=== PATIENT | female | born 1970 | race Caucasian/White ===

== ENCOUNTER 2016-05-20 20:53 | Emergency (ER) | payer OTHER ==
--- NOTE | ~2016-05-20 | CT71 ---
[facility] A Service of [facility] RADIOLOGY TEXT RESULTS PATIENT: LEAH BUENO LOCATION: [facility] : [birth year] UNIT #: [id number] AGE: [address]: Meme Healy MD SEX: F ORDER DR: [id number] [address] [place], [place] [address] [id number] MR#: [id number] Acc #: [id number] NAME: LEAH BUENO : 1970 SEX: F STUDY DATE/TIME: 05/20/2016 22:48 UNIT: [facility] ROOM: STUDY DESCRIPTION: CT Head Wo Contrast Attending Physician: Meme Healy M.D. Ordering Physician: Meme Healy M.D. Primary Care Physician: Generic Doctor Not In System MEDICAL IMAGING REPORT This report is preliminary unless electronic signature is present EXAM CT head without IV contrast COMPARISON None INDICATIONS A 46-year-old female with seizure tonight. TECHNIQUE This CT exam was performed with one or more of the following radiation dose reduction techniques: automatic exposure control, adjustment of mA and/or kV according to patient size, and iterative reconstruction. FINDINGS There is moderate mucosal thickening in the posterior right ethmoid air cells. Otherwise mastoid air cells, middle ears and visualized paranasal sinuses are well-aerated. No acute fractures or suspicious osseous lesions. Normal cerebral volume. No abnormal or extraaxial fluid collection or mass effect. No acute intracranial hemorrhage. No evidence of acute ischemia. IMPRESSION No acute intracranial abnormality. Mild mucosal thickening of the right-sided ethmoid air cells as described of uncertain acuity. Dictated by... Dale Piedra M.D. [facility] A Service of [facility] RADIOLOGY TEXT RESULTS PATIENT: LEAH BUENO LOCATION: [facility] : [birth year] UNIT #: [id number] AGE: [address]: Meme Healy MD SEX: F ORDER DR: THIS IS AN ELECTRONICALLY VERIFIED REPORT Dale Piedra M.D. at 05/24/2016 7:55 AM Ovidio TD: 05/21/2016 02:51 JOB #: [id number] MEDICAL IMAGING REPORT COPY
[~2016-05-20 20:53] MED LIST: BENZONATATE PO; CLEOCIN PO; FLEXERIL10 M1 PO; GABAPENTIN300 MG PO; METHADONE; VOLTAREN75 MG PO; ZITHROMAX1 G/PKT PO
[2016-05-20 21:22] LABS: BASOPHIL# 0.1 X10e3 (0-0.3); BASOPHIL% 0.6 % (0-2.5); EOSINOPHIL# 0.1 X10e3 (0-0.7); EOSINOPHIL% 0.7 % (0.0-7.0); HEMATOCRIT 37.4 % (35.0-45.0); HEMOGLOBIN 12.3 gm/dL (12.0-16.0); LYMPHOCYTE# 1.5 X10e3 (1.0-3.5); LYMPHOCYTE% 12.4 % (17.0-45.0); MEAN CELL VOLUME 94.4 FL (83-96); MEAN CORPUSCULAR HEMOGLOBIN 30.9 PG (28-34); MEAN CORPUSCULAR HGB CONC 32.8 g/dL (30-36); MEAN PLATELET VOLUME 9.7 FL (6.5-11.5); MONOCYTE# 0.8 X10e3 (0-1.0); MONOCYTE% 6.4 % (3.0-12.0); NEUTROPHIL# 9.5 X10e3 (1.5-7.1); NEUTROPHIL% 79.9 % (40-75); PLATELET COUNT 223 X10e3 (140-420); RED BLOOD COUNT 3.96 X10e (3.90-5.30); WHITE BLOOD COUNT 11.9 X10e3 (4.0-10.5)
[2016-05-20 21:33] LABS: DIFF IND NO
[2016-05-20 21:41] LABS: URINE SOURCE CLEAN CATCH
[2016-05-20 21:45] LABS: URINE APPEARANCE TURBID; URINE BILIRUBIN NEG (NEG); URINE BLOOD NEG (NEG); URINE COLOR YELLOW; URINE GLUCOSE NEG (NEG); URINE KETONE NEG (NEG); URINE LEUKOCYTE ESTERASE 1+ (NEG); URINE NITRATE NEG (NEG); URINE PROTEIN NEG (NEG); URINE SPECIFIC GRAVITY 1.019 (1.003-1.035); URINE UROBILINOGEN 0.2 MG/DL (NEG)
[2016-05-20 21:47] LABS: CULTURE INDICATED? YES; URINE BACTERIA AUWI 4+ (NEGATIVE); URINE SQUAMOUS EPITHELIAL CELL MANY /[HPF]; UWBCS1 AUWI 25-50 (0-5)
[2016-05-20 21:53] LABS: ALBUMIN SERUM 3.6 g/dL (3.5-5.0); ALKALINE PHOSPHATASE 63 U/L (32-92); ALT (SGPT) 25 U/L (10-40); AST (SGOT) 24 U/L (10-42); BILIRUBIN,TOTAL 0.3 mg/dL (0.2-2.0); BLOOD UREA NITROGEN 18 mg/dL (9-23); CALCIUM SERUM 8.6 mg/dL (8.4-10.2); CARBON DIOXIDE 30 mmol/L (22-31); CHLORIDE 103 mmol/L (100-111); CREATININE SERUM 0.6 mg/dL (0.6-1.4); GLOM FILT RATE Estimated ABOVE60 mL/min (>60); GLUCOSE FASTING 128 mg/dL (70-110); POTASSIUM 4.1 mmol/L (3.5-5.1); PROTEIN TOTAL SERUM 6.9 g/dL (6.0-8.3); SODIUM 137 mmol/L (135-145)
[2016-05-20 21:57] LABS: ALCOHOL BLOOD <5 mg/dL (0); BILIRUBIN,INDIRECT 0.2 mg/dL (0.0-0.9)
[2016-05-20 21:58] LABS: BILIRUBIN, DIRECT 0.1 mg/dL (0.0-0.2)
[2016-05-20 22:00] LABS: URBCS1 AUWI 0-2 /[HPF] (0-2)
[2016-05-20 22:24] LABS: AMPHETAMINE NEG (NEG); BARBITURATES NEG (NEG); BENZODIAZEPINES POS (NEG); COCAINE NEG (NEG); MARIJUANA NEG (NEG); OPIATES NEG (NEG); TRICYCLIC ANTIDEPRESSANTS NEG (NEG); U METHADONE NEG (NEG)
== END 2016-05-21 00:10 | disposition home or self-care (01) ==
LOC: CED 20:53
PROVIDERS: Student in an Organized Health Care Education/Training Program
DX: F19.10 Other psychoactive substance abuse, uncomplicated (principal); F17.200 Nicotine dependence, unspecified, uncomplicated
CPT/HCPCS: 36415; 70450; 80048; 80076; 80307; 81003; 84703; 85025; 87086; 96360; 99284; G0480

== ENCOUNTER 2016-07-14 13:46 | Inpatient (IN) | payer OTHER ==
--- NOTE | ~2016-07-14 | DS ---
Unit #: [id number] #: [id number] [facility] [id number] [facility] [address] [place] [address] [id number] I MR#: [id number] NAME: LEAH BUENO ROOM: 30 Age: 46 Sex: F Admission Date: 07/14/2016 : 1970 Discharge Date: 07/21/2016 Attending Physician: Sukhi Collins M.D. Primary Care Physician: Generic Doctor Not In System DISCHARGE SUMMARY IDENTIFICATION DATA Ms. Bueno is a 46-year-old single white female with a long history of chronic mental illness who was brought to the hospital by Crisis Intervention Team with [facility] Department. DISCHARGE DIAGNOSES PSYCHIATRIC: Chronic, paranoid schizophrenia. MEDICAL: Hypertension. STRESSORS: Moderate psychosocial stressors. HISTORY OF PRESENT ILLNESS Same as in initial psychiatric evaluation. PAST PSYCHIATRIC HISTORY Same as in initial psychiatric evaluation. PAST MEDICAL HISTORY Same as in initial psychiatric evaluation. HOSPITAL COURSE The patient was admitted to the adult psychiatric unit at [facility] and was oriented to the hospital environment. Routine p.r.n. medications were initiated, and she was started back on her home medications. However, she was seen to be acutely psychotic upon presentation, and as such medications were adjusted. She was also seen to be a candidate for long-acting injectable antipsychotic, and after ruling out hypersensitivity to the molecule of Risperdal, Invega Sustenna was initiated, and she was able to get the first loading dose, 1 in the hospital and then she decided that she wanted to be discharged home and was willing to continue treatment on outpatient basis. As such, it was decided that she will be discharged, and we will continue treatment on outpatient basis. DISCHARGE MEDICATIONS 1. Remeron 15 mg at bedtime for depression. 2. Invega Sustenna 156 mg intramuscular every 30 days for schizophrenia. DISCHARGE CONDITION Stable. PROGNOSIS Fair. Unit #: [id number] #: [id number] Patient: LEAH BUENO Dictated by... Sukhi Collins M.D. IAA/bzg TD: 07/21/2016 13:49 JOB #: [id number] DISCHARGE SUMMARY Page 1 of 1 X Sukhi Collins MD DISCHARGE SUMMARY
--- NOTE | ~2016-07-14 | PN ---
Unit #: [id number] #: [id number] Patient: LEAH BUENO [id number] [facility] [address] [place] [address] [id number] I MR#: [id number] NAME: LEAH BUENO ROOM: P130 Age: 46 Sex: F Admission Date: 07/14/2016 : 1970 Attending Physician: Sukhi Collins M.D. Admitting Physician: Sukhi Collins M.D. Primary Care Physician: Generic Doctor Not In System [facility] PROGRESS NOTES DATE 07/15/2016 DISCUSSION Ms. Bueno is a 46-year-old white female who was seen today and chart was reviewed and case was discussed with the staff. She remains anxious, withdrawn and rather seclusive to herself and reports persistent auditory hallucinations and depression and anxiety. Meanwhile, she has not shown any agitation or aggression. MENTAL STATUS EXAMINATION Middle-aged white female who was casually dressed with fair personal hygiene, appears to be in no acute distress or discomfort. She was awake and alert with intact orientation. Her mood is anxious with congruent affect. She denies any suicidal or homicidal ideations. Her insight and judgement remains significantly impaired. TREATMENT PLAN 1. We will continue her on her current medications and treatment protocol. We will monitor her response to the medications and make further adjustments as needed. 2. We will continue to follow up. Dictated by... Xochitl Chowdhury/savannah TD: 07/17/2016 00:44 JOB #: [id number] Unit #: [id number] #: [id number] Patient: LEAH BUENO PROGRESS NOTES Page 1 of 1 X Sukhi Collins MD X PROGRESS NOTE
--- NOTE | ~2016-07-14 | HP ---
Unit #: [id number] #: [id number] Patient: DIONE BUENO [id number] [place] [address] [id number] I MR#: [id number] NAME: DIONE BUENO ROOM: 30 Age: 46 Sex: F Admission Date: 07/14/2016 : 1970 Attending Physician: Sukhi Collins M.D. Admitting Physician: Sukhi Collins M.D. Primary Care Physician: Generic Doctor Not In System HISTORY AND PHYSICAL HISTORY OF PRESENT ILLNESS Dione is a 46 year old admitted to [address] [place] [address] with psychotic behavior. She has had other admissions to this facility. PAST MEDICAL HISTORY 1. Degenerative disk disease. 2. Overactive bladder. 3. High blood pressure. PAST SURGICAL HISTORY 1. Benign breast mass resected. 2. History of tubal . ALLERGIES No known drug allergies. SOCIAL HISTORY Smokes one-half packs per day. Denies alcohol. Admits to a history of illicit substance abuse. FAMILY HISTORY Medically noncontributory. REVIEW OF SYSTEMS She does not answer all questions appropriately. There are no reports of nausea, vomiting, or diarrhea. She has had no cough or increased temperature. CURRENT MEDICATIONS 1. Flomax 0.4 mg q.h.s. 2. Desyrel 100 mg q.h.s. 3. Risperdal 2 mg t.i.d. 4. Neurontin 300 mg t.i.d. 5. Milk of Magnesia p.r.n. 6. Maalox p.r.n. 7. Tylenol p.r.n. 8. Norvasc 5 mg q. day. 9. Nicotine patch 21 mg q. day. PHYSICAL EXAMINATION GENERAL: Alert, well nourished. No apparent distress. VITAL SIGNS: Blood pressure 120/62, heart rate 80, respirations 16, and temperature 98.6. Unit #: [id number] #: [id number] Patient: DIONE BUENO WEIGHT: 130. HEIGHT: 5 feet 6 inches. SKIN: Warm and dry without rash or lesion. HEENT: Normocephalic. TMs not viewed. Oral and nasal passages clear. Conjunctivae clear. PERRLA. EOMs intact. NECK: Supple without lymphadenopathy or thyromegaly. HEART: Regular rate and rhythm without murmur. LUNGS: Clear. ABDOMEN: Soft, nontender. : Not done. EXTREMITIES: No evidence of cyanosis, clubbing or edema. Moves all without focal deficit. NEUROLOGICAL: Grossly within normal limits. Cranial Nerves: II: Visual conley are intact. III, IV AND : Extraocular movements are intact. Pupils are equal, round and reactive to light. V: Facial sensation is grossly normal. VII: Facial movements and expression are normal. VIII: Auditory acuity grossly intact. IX, X: Uvula is midline. Phonation is normal. XI: Patient shrugs shoulders and turns head normally. XII: Tongue protrudes in the midline. Sensory and Motor Function: Sensory and motor sensation is grossly normal. Motor: moves all extremities well. Coordination: Gait is normal. Deep Tendon Reflexes: Intact. IMPRESSION Psychiatric admission. RECOMMENDATIONS PSYCHIATRIC: Per psychiatrist. MEDICAL: I see no contraindication to participate in this facility's activities. MEDICAL PROGNOSIS Good. MEDICAL CONDITION Stable. Dictated by... Anita Chambers PTierraA.-C. for Xochitl Delarosa/tiara TD: 07/15/2016 07:00 JOB #: [id number] Unit #: [id number] #: [id number] Patient: DIONE BUENO HISTORY AND PHYSICAL Page 1 of 1 X Anita Chambers HISTORY AND PHYSICAL
--- NOTE | ~2016-07-14 | PA ---
Unit #: [id number] #: [id number] Patient: LEAH BUENO [id number] [facility] [address] [place] [address] [id number] I MR#: [id number] NAME: LEAH BUENO ROOM: P130 Age: 46 Sex: F Admission Date: 07/14/2016 : 1970 Date of Assessment: 07/14/2016 Attending Physician: Sukhi Collins M.D. Admitting Physician: Sukhi Collins M.D. Primary Care Physician: Generic Doctor Not In System PSYCHIATRIC ASSESSMENT DATE OF SERVICE 07/14/2016. IDENTIFYING DATA Mrs. Bueno is a 46-year-old single white female with long history of chronic mental illness, who is known to us from previous encounter and was transferred to us by crisis intervention team of the [facility] Department. CHIEF COMPLAINT "I'm hearing voices." HISTORY OF PRESENT ILLNESS Ms. Bueno is a 46-year-old white female who was picked up by [employer] at a parking lot. She was attempted to get into random vehicles and also attempted to walk into traffic. Also, she reported she is hearing voices and having suicidal ideations and on arrival to the [facility] at [facility], the patient was found having conversation with herself and was responding to internal stimuli, and reports being depressed and that all she want us to kill herself and reports wanting the voices to stop. She continues to report the drugs are not a problem that we should not focus on the drugs and she has only used meth once in her life, but also reports using over the past 5 years and was seen to be very impulsive and unpredictable and was acutely psychotic and was medically cleared at the [facility] and then was transferred to us. SUBSTANCE ABUSE HISTORY The patient reports history of experimentation with methamphetamine and cannabis, but denies any current substance abuse. PAST PSYCHIATRIC HISTORY The patient has had [facility] with outpatient treatment at [facility], and review of the medical records indicate that she has been diagnosed and treated for chronic paranoid schizophrenia. She is supposed to be on Risperdal, but apparently has been noncompliant with the medications and has been decompensating. PAST MEDICAL HISTORY The patient's medical history is significant for chronic back pain, hypertension. Unit #: [id number] #: [id number] Patient: LEAH BUENO ALLERGIES No known medication allergies. PERSONAL AND SOCIAL HISTORY A 46-year-old white female who reports that she lives at home with her boyfriend and is unemployed and has poor social support system. MENTAL STATUS EXAMINATION Middle-aged white female who was casually dressed with fair personal hygiene, appears to be in no acute distress or discomfort. She was awake and alert with impaired attention and concentration. Her mood was anxious and depressed with a congruent affect. Her speech was slow and restricted in content. Her thought processes were disorganized with some looseness of associations, thought blocking, paranoid ideations, delusional behavior, and auditory or visual hallucinations. Her insight and judgment remain significantly impaired. DIAGNOSTIC IMPRESSION Psychiatric: Chronic paranoid schizophrenia. Medical: Hypertension, chronic back pain. Stressors: Moderate psychosocial stressors. TREATMENT PLAN 1. The patient has presented with history of chronic mental illness and has been decompensating and will need inpatient hospitalization for safety and stabilization. We will start her back on her home medications. We will adjust the medications and monitor response. 2. Supportive therapy was provided to the patient. 3. Safe, structured, and nourishing environment will be provided. ESTIMATED LENGTH OF STAY 7 to 10 days. ABILITY TO HELP SELF Limited. WILLINGNESS TO HELP SELF The patient appears to be willing to help self. STRENGTHS 1. Communicative. 2. Cooperative. PROBLEMS 1. Chronic dysphoric symptoms. 2. Poor social support system. DISCHARGE CRITERIA This will be contingent upon the patient's ability to show resolution of her depression and psychosis, and her ability to stay safe to herself, particularly after discharge from the hospital. Dictated by... Sukhi Collins M.D. CHAD/guerrero Unit #: [id number] #: [id number] Patient: LEAH BUENO TD: 07/15/2016 18:50 JOB #: [id number] PSYCHIATRIC ASSESSMENT Page 1 of 1 X Sukhi Collins MD PSYCHIATRIC ASSESSMENT
--- NOTE | ~2016-07-14 | PN ---
Unit #: [id number] #: [id number] Patient: LEAH BUENO [id number] [facility] [address] [place] [address] [id number] I MR#: [id number] NAME: LEAH BUENO ROOM: P130 Age: 46 Sex: F Admission Date: 07/14/2016 : 1970 Attending Physician: Sukhi Collins M.D. Admitting Physician: Sukhi Collins M.D. Primary Care Physician: Generic Doctor Not In System [facility] PROGRESS NOTES DATE 07/18/2016 DISCUSSION Ms. Bueno is a 46-year-old white female with mood disorder and psychosis who was seen today and chart was reviewed and case was discussed with the staff. She remains anxious, withdrawn and rather seclusive to herself. Meanwhile, she has been cooperative with treatment recommendations and has been taking medications and tolerating them fairly well with no reported side effects. MENTAL STATUS EXAMINATION Middle-aged white female who was casually dressed with fair personal hygiene and appears to be in no acute distress or discomfort. She was awake and alert with impaired attention and concentration. Her mood was anxious and depressed with congruent affect. Her speech is slow and restricted in content. She reports having auditory and visual hallucinations. Her insight and judgement remains significantly impaired. TREATMENT PLAN 1. Will continue on current medications and treatment protocol. Will monitor her response to the medications and make further adjustments as needed. 2. Will continue to follow up. Dictated by... Xochitl Chowdhury/dejon TD: 07/18/2016 18:08 JOB #: [id number] Unit #: [id number] #: [id number] Patient: LEAH BUENO [facility] PROGRESS NOTES Page 1 of 1 X Sukhi Collins MD X PROGRESS NOTE
--- NOTE | ~2016-07-14 | PN ---
Unit #: [id number] #: [id number] Patient: LEAH BUENO [id number] [facility] [address] [place] [address] [id number] I MR#: [id number] NAME: LEAH BUENO ROOM: P130 Age: 46 Sex: F Admission Date: 07/14/2016 : 1970 Attending Physician: Sukhi Collins M.D. Admitting Physician: Sukhi Collins M.D. Primary Care Physician: Generic Doctor Not In System [facility] PROGRESS NOTES DATE 07/20/2016 DISCUSSION Ms. Bueno is a 46-year-old white female who was seen today and chart was reviewed and case was discussed with the staff. She has been anxious, withdrawn though has not shown any agitation, irritability or behavioral problems and has been cooperative with treatment recommendations and has been taking medications and tolerating them fairly well. MENTAL STATUS EXAMINATION Middle-aged white female who was casually dressed with fair personal hygiene and appears to be in no acute distress or discomfort. She was awake and alert with impaired attention and concentration. Her mood was . She denies any suicidal or homicidal ideations. Her insight and judgement remains slightly impaired. TREATMENT PLAN 1. Will continue on current medications and treatment protocol and will monitor her response to the medications and make further adjustments as needed. 2. Will continue to follow up. Dictated by... Sukhi Collins M.D. IAA/dejon TD: 07/20/2016 17:39 JOB #: [id number] Unit #: [id number] #: [id number] Patient: LEAH BUENO PROGRESS NOTES Page 1 of 1 X Sukhi Collins MD X PROGRESS NOTE
--- NOTE | ~2016-07-14 | PN ---
Unit #: [id number] #: [id number] Patient: LEAH BUENO [id number] [facility] [address] [place] [address] [id number] I MR#: [id number] NAME: LEAH BUENO ROOM: P130 Age: 46 Sex: F Admission Date: 07/14/2016 : 1970 Attending Physician: Sukhi Collins M.D. Admitting Physician: Sukhi Collins M.D. Primary Care Physician: Generic Doctor Not In System [facility] PROGRESS NOTES DATE July 17, 2016 DISCUSSION Ms. Bueno is a 46-year-old white female, who was seen today and chart was reviewed and the case was discussed with the staff. She has been anxious, withdrawn, and rather seclusive to herself. Meanwhile, she has been cooperative with the treatment recommendations and she has been taking her medications and tolerating them fairly well with no reported side effects. MENTAL STATUS EXAMINATION Middle-aged white female, who was casually dressed with fair personal hygiene and appears to be in no acute distress or discomfort. She was awake and alert on interaction with intact orientation. Her mood is anxious with a congruent affect. She denies any suicidal or homicidal ideations. Her insight and judgment remain slightly impaired. TREATMENT PLAN 1. We will continue her on her current medications and treatment protocol, and will monitor her response to the medications, and make further adjustments as needed. 2. We will continue to followup. Dictated by... Xochitl Chowdhury/farzana TD: 07/17/2016 12:30 JOB #: [id number] Unit #: [id number] #: [id number] Patient: [facility]AH BUENO [facility] PROGRESS NOTES Page 1 of 1 X Sukhi Collins MD X PROGRESS NOTE
--- NOTE | ~2016-07-14 | PN ---
Unit #: [id number] #: [id number] Patient: LEAH BUENO [id number] [facility] [address] [place] [address] [id number] I MR#: [id number] NAME: LEAH BUENO ROOM: P130 Age: 46 Sex: F Admission Date: 07/14/2016 : 1970 Attending Physician: Sukhi Collins M.D. Admitting Physician: Sukhi Collins M.D. Primary Care Physician: Generic Doctor Not In System [facility] PROGRESS NOTES DATE July 19, 2016 DISCUSSION Ms. Bueno is a 46-year-old white female, with mood disorder and psychosis, who was seen today and chart was reviewed and the case was discussed with the staff. She appears to be doing much better and has been calm and cooperative with the treatment recommendations and she has been taking the medications and tolerating them fairly well with no reported side effects. MENTAL STATUS EXAMINATION Middle-aged white female, who was casually dressed with fair personal hygiene and appears to be in no acute distress or discomfort. She was awake and alert on interaction with intact orientation. Her mood is anxious and depressed with a congruent affect. Her speech is slow and goal-directed. The patient denies any suicidal or homicidal ideations, and also denies any auditory or visual hallucinations. Her insight and judgment remain slightly impaired. TREATMENT PLAN 1. We will continue her on her current medications and treatment protocol, and will monitor her response to the medications, and make further adjustments as needed. 2. We will continue to followup. Dictated by... Xochitl Chowdhury/farzana TD: 07/19/2016 11:05 JOB #: [id number] Unit #: [id number] #: [id number] Patient: LEAH BUENO PROGRESS NOTES Page 1 of 1 X Sukhi Collins MD PROGRESS NOTE
[2016-07-17 09:33] LABS: BASOPHIL# 0.1 X10e3 (0-0.3); BASOPHIL% 0.8 % (0-2.5); EOSINOPHIL# 0.1 X10e3 (0-0.7); EOSINOPHIL% 0.9 % (0.0-7.0); HEMATOCRIT 42.2 % (35.0-45.0); LYMPHOCYTE# 2.8 X10e3 (1.0-3.5); LYMPHOCYTE% 25.5 % (17.0-45.0); MEAN CORPUSCULAR HEMOGLOBIN 30.9 PG (28-34); MEAN CORPUSCULAR HGB CONC 33.2 g/dL (30-36); MEAN PLATELET VOLUME 10.7 FL (6.5-11.5); MONOCYTE# 0.5 X10e3 (0-1.0); MONOCYTE% 4.2 % (3.0-12.0); NEUTROPHIL# 7.6 X10e3 (1.5-7.1); NEUTROPHIL% 68.6 % (40-75); PLATELET COUNT 232 X10e3 (140-420); RED BLOOD COUNT 4.54 X10e (3.90-5.30); RED CELL DISTRIBUTION WIDTH 13.6 % (11.0-15.5)
[2016-07-17 09:35] LABS: DIFF IND NO
[2016-07-17 10:00] LABS: ALBUMIN SERUM 3.8 g/dL (3.5-5.0); BILIRUBIN,TOTAL 0.6 mg/dL (0.2-2.0); CALCIUM SERUM 9.6 mg/dL (8.4-10.2); CREATININE SERUM 0.6 mg/dL (0.6-1.4); GLOM FILT RATE Estimated 108.5 mL/min (>60); POTASSIUM 4.6 mmol/L (3.5-5.1); PROTEIN TOTAL SERUM 7.3 g/dL (6.0-8.3)
[2016-07-17 10:03] LABS: FREE THYROXIN (T4) 0.83 ng/dL (0.58-1.64)
[2016-07-18 12:50] LABS: URINE APPEARANCE CLEAR; URINE BILIRUBIN NEG (NEG); URINE BLOOD NEG (NEG); URINE COLOR YELLOW; URINE GLUCOSE NEG (NEG); URINE KETONE NEG (NEG); URINE LEUKOCYTE ESTERASE TRACE (NEG); URINE NITRATE NEG (NEG); URINE PROTEIN NEG (NEG); URINE UROBILINOGEN 0.2 MG/DL (NEG)
[2016-07-18 12:53] LABS: URINE BACTERIA AUWI 1+ (NEGATIVE); URINE SQUAMOUS EPITHELIAL CELL FEW /[HPF]
[2016-07-18 18:33] LABS: AMPHETAMINE NEG (NEG); BARBITURATES NEG (NEG); BENZODIAZEPINES NEG (NEG); COCAINE NEG (NEG); MARIJUANA NEG (NEG); OPIATES NEG (NEG); TRICYCLIC ANTIDEPRESSANTS NEG (NEG); U METHADONE NEG (NEG)
== END 2016-07-21 11:30 | disposition home or self-care (01) | DRG 885 ==
LOC: P1S 13:46
PROVIDERS: Psychiatry & Neurology Psychiatry
DX: F20.0 Paranoid schizophrenia (principal); I10 Essential (primary) hypertension; G89.29 Other chronic pain; M54.9 Dorsalgia, unspecified; F17.210 Nicotine dependence, cigarettes, uncomplicated; F32.9 Major depressive disorder, single episode, unspecified
CPT/HCPCS: 80053; 80307; 81003; 84439; 84443; 84703; 85025